=== PATIENT | female | born 1980 | race African-American/Black ===

== ENCOUNTER 2021-12-09 11:16 | Emergency (ER) | payer OTHER ==
[~2021-12-09] VITALS: Ht 157.5 cm; Wt 50.0 kg
[2021-12-09 11:23] VITALS: BP 125/69
== END 2021-12-09 15:09 | disposition home or self-care (01) ==
LOC: ER 11:25
DX: S93.491A Sprain of other ligament of right ankle, initial encounter (principal); W01.0XXA Fall on same level from slipping, tripping and stumbling without subsequent striking against object, initial encounter; Y93.89 Activity, other specified; Y92.89 Other specified places as the place of occurrence of the external cause
CPT/HCPCS: 73610; 99283

== ENCOUNTER 2022-04-07 18:28 | Emergency (ER) | payer OTHER ==
[~2022-04-07] VITALS: Ht 154.9 cm; Wt 46.0 kg
[2022-04-07] MEDS ORDERED: AMOX1TAB16 MT (20:19)
[2022-04-07] MEDS ORDERED: HYDR453.3 TP (20:19)
[2022-04-07] MEDS ORDERED: TETANUS, DIPHTHERIA, PERTUSSIS VAC/PF 0.5ML (>10YR OLD) IM ONE (20:30)
[2022-04-07 23:33] VITALS: BP 112/66
== END 2022-04-07 23:33 | disposition home or self-care (01) ==
LOC: ER 18:28
DX: S71.151A Open bite, right thigh, initial encounter (principal); S70.11XA Contusion of right thigh, initial encounter; L30.9 Dermatitis, unspecified; D64.9 Anemia, unspecified; W50.3XXA Accidental bite by another person, initial encounter; Y93.89 Activity, other specified; Y92.018 Other place in single-family (private) house as the place of occurrence of the external cause
CPT/HCPCS: 81025; 90471; 90715; 99283